=== PATIENT | female | born 1960 | race Caucasian/White ===

== ENCOUNTER → 2016-06-18 | Outpatient (CLI) | payer BC, OTHER | LOC: RAD 16:55 | PROVIDERS: ATTEND Physician Assistant | DX: M54.5 Low back pain (principal); M47.896 Other spondylosis, lumbar region | CPT/HCPCS: 72110 ==

== ENCOUNTER → 2017-09-23 | Outpatient (CLI) | payer BC, OTHER ==
--- NOTE | 2017-09-23 10:15 | RADIOLOGY REPORT (SQ) ---
EXAM DESCRIPTION: MRI CERVICAL SPINE WITHOUT COMPLETED DATE/TIME: 09/23/2017 7:59 am REASON FOR STUDY: OTHER CERVICAL DISC DEGENERATION, UNSPEC CERVICAL REGION (M50.30) M50.30 OTHER CE RVICAL DISC DEGENERATION, UNSP CERVICAL REGIO COMPARISON: 11/16/2015 TECHNIQUE: Sagittal and Axial imaging includes T1, T2, STIR and gradient echo sequences. LIMITATIONS: Patient motion. FINDINGS: ALIGNMENT: Normal. VERTEBRAE: Intact. BONE MARROW: Normal. No marrow replacement or reactive changes. DISCS: Desiccation multiple levels. HARDWARE: None in the spine. CORD AND BASE OF BRAIN: Cord signal is normal. Increased T2 signal in the [place] which is not signific antly changed and probably secondary to chronic ischemic change. SOFT TISSUES: No soft tissue masses. C1-C2: No significant spinal stenosis. C2-C3: No significant spinal stenosis or exit foraminal stenosis. C3-C4: Minimal narrowing of the spinal canal due to disc osteophyte complex. Severe left neural fora azar narrowing. C4-C5: Minimal narrowing of the spinal canal. Mild left and severe right neural foraminal narrowing. C5-C6: Mild spinal stenosis due to disc osteophyte complex. Moderate neural foraminal narrowing bila terally. C6-C7: Similar findings as at C5- 6. C7-T1: No significant spinal stenosis or exit foraminal stenosis. UPPER THORACIC: No acute findings. OTHER: No other significant finding. IMPRESSION: Mild spinal stenosis C5- 6 and C6-7. No significant change. TECHNICAL DOCUMENTATION: JOB ID: [id number] [employer]- All Rights Reserved Reading location - IP/workstation name: [email or web address]
== END ==
LOC: RAD 06:36
PROVIDERS: ATTEND Physician Assistant
DX: M50.30 Other cervical disc degeneration, unspecified cervical region (principal)
CPT/HCPCS: 72141

== ENCOUNTER → 2017-10-01 | Outpatient (CLI) | payer BC, OTHER ==
--- NOTE | 2017-10-01 15:29 | RADIOLOGY REPORT (SQ) ---
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 9 MALIGNANT NEOPLASM OF UNSP KIDNEY, EXCEPT RENAL PELVIS COMPARISON: None. TECHNIQUE: Dynamic and static grayscale images acquired of the kidneys and bladder and recorded on P ACS. Additional selected color Doppler and spectral images recorded. LIMITATIONS: None. FINDINGS: RIGHT KIDNEY: Normal size. Normal echogenicity. No solid or suspicious masses. No h ydronephrosis. No calcifications. LEFT KIDNEY: Normal size. Normal echogenicity. No solid or suspicious masses. Mild dilatation of the renal pelvis 9 mm. No calcifications. BLADDER: No masses. OTHER FINDINGS: No other significant finding. IMPRESSION: Mild dilatation of the left renal pelvis without visualized stones or mass. TECHNICAL DOCUMENTATION: JOB ID: [id number] [employer]- All Rights Reserved Reading location - IP/workstation name: [facility]
== END ==
LOC: RAD 12:51
PROVIDERS: ATTEND Internal Medicine Hematology & Oncology
DX: Q85.8 Other phakomatoses, not elsewhere classified (principal); C64.9 Malignant neoplasm of unspecified kidney, except renal pelvis
CPT/HCPCS: 76770

== ENCOUNTER → 2017-11-12 | Outpatient (CLI) | payer BC, OTHER ==
--- NOTE | 2017-11-13 15:49 | RADIOLOGY REPORT (SQ) ---
EXAM DESCRIPTION: MRI HEAD COMBO COMPLETED DATE/TIME: 11/12/2017 7:47 pm REASON FOR STUDY: PARESTHESIA OF SKIN R20.2 PARESTHESIA OF SKIN COMPARISON: None. TECHNIQUE: Multiplanar imaging includes noncontrasted T1, T2, FLAIR, diffusion with ADC map and post gadolinium contrast T1 sequences. Images stored on PACS. CONTRAST TYPE AND DOSE: Not provided. RENAL FUNCTION: Not provided. LIMITATIONS: None. FINDINGS: ANATOMY: No anomalies. Normal vascular flow voids. Pituitary fossa normal. CSF SPACES: Normal in size and contour. No hemorrhage. CEREBRUM: Multifocal areas of T2/FLAIR hyperintense white matter signal. Moderate-marked. Likely sm all vessel vasculopathy. Most confluent along the deep posterior periventricular regions bilaterally . No enhancing lesions. POSTERIOR FOSSA: No signal alteration. No hemorrhage. No edema, masses, or mass effect. Internal mariia tory canals, cerebellopontine angles, mastoids normal. No enhancing lesions. No abnormal enhancement post contrast. DIFFUSION IMAGING: Negative for acute or subacute infarction. ORBITS: No masses. Globes normal. PARANASAL SINUSES: No fluid levels. Mucosa normal. OTHER: No other significant finding. IMPRESSION: 1. Preserved brain parenchymal volume but fairly extensive white matter lesions bilatera lly. Likely related to small vessel disease, most commonly microvascular ischemic change. However t he appearance is fairly extensive for a patient of this age. Demyelinating disease is therefore also in the differential, as are toxic/ chemotherapeutic changes in a patient with history of breast canc er. No enhancing lesions. No recent CVA. EVIDENCE OF ACUTE STROKE: NO. TECHNICAL DOCUMENTATION: JOB ID: [id number] [employer]- All Rights Reserved Reading location - IP/workstation name: [email or web address]
== END ==
LOC: RAD 16:11
PROVIDERS: ATTEND Specialist
DX: R20.2 Paresthesia of skin (principal)
CPT/HCPCS: 82565; 70553; A9577

== ENCOUNTER 2018-09-01 16:41 | Emergency (ER) | payer BC, OTHER ==
--- NOTE | 2018-09-01 18:54 | RADIOLOGY REPORT (SQ) ---
EXAM DESCRIPTION: FOREARM RIGHT COMPLETED DATE/TIME: 09/01/2018 6:47 pm REASON FOR STUDY: fall, pain to forearm and wrist COMPARISON: None. NUMBER OF VIEWS: Two views. TECHNIQUE: Two radiographic images acquired of the right forearm, including elbow and wrist in at le ast one projection. LIMITATIONS: None. FINDINGS: MINERALIZATION: Normal. BONES: No acute fracture. No worrisome bone lesions. SOFT TISSUES: No obvious swelling or foreign body. OTHER: No other significant finding. IMPRESSION: NEGATIVE STUDY OF THE RIGHT FOREARM. NO RADIOGRAPHIC EVIDENCE OF ACUTE INJURY. TECHNICAL DOCUMENTATION: JOB ID: [id number] [employer]- All Rights Reserved Reading location - IP/workstation name: [email or web address]
[2018-09-01] MEDS ORDERED: IBUPROFEN 600 MG TABLET PO ONE (19:07)
--- NOTE | 2018-09-01 19:10 | ER Document Report ---
HPI - HPI Time Seen by Provider: 09/01/18 18:05 Pain Level: 2 Notes: Patient is a 58-year-old female who presents with right forearm and right wrist pain and swelling. She reports she tripped and fell while going to get the mail. Patient denies any pain at the elbow or shoulder. - REPRODUCTIVE Reproductive: DENIES: : - MUSCULOSKELETAL Musculoskeletal: REPORTS: Extremity pain - R arm Past Medical History - General Information source: Patient - Social History Smoking Status: Never Smoker Family History: Reviewed & Not Pertinent Patient has suicidal ideation: No Patient has homicidal ideation: No - Past Medical History Cardiac Medical History: Reports: Hx Hypercholesterolemia, Hx Hypertension Pulmonary Medical History: Reports: Hx Pneumonia Endocrine Medical History: Reports: Hx Diabetes Mellitus Type 2 Renal/ Medical History: Denies: Hx Peritoneal Dialysis GI Medical History: Reports: Hx Gastroesophageal Reflux Disease Musculoskeletal Medical History: Reports Hx Arthritis Past Surgical History: Reports: Hx Appendectomy, Hx Breast Surgery - RIGHT MASTECTOMY, Hx Hysterectomy, Hx Mastectomy, Hx Tonsillectomy, Hx Vascular Surgery - Immunizations Hx Diphtheria, Pertussis, Tetanus Vaccination: Yes Vertical Provider Document - CONSTITUTIONAL Notes: PHYSICAL EXAMINATION: GENERAL: Well-appearing, well-nourished and in no acute distress. HEAD: Atraumatic, normocephalic. EYES: Pupils equal round extraocular movements intact, conjunctiva are normal. ENT: Nares patent NECK: Normal range of motion LUNGS: No respiratory distress Musculoskeletal: Swelling noted to right arm in the wrist and forearm. No erythema or ecchymosis noted. Strong radial pulse. Cap refill less than 3 seconds, normal motor and sensation distal to injury. NEUROLOGICAL: Normal speech, normal gait. PSYCH: Normal mood, normal affect. SKIN: Warm, Dry, normal turgor, no rashes or lesions noted. - INFECTION CONTROL TRAVEL OUTSIDE OF THE [place] IN LAST 30 DAYS: No Course - Re-evaluation Re-evalutation: X-rays negative for any acute fracture or dislocation. Patient will be discharged home, instructed to apply ice, elevate and take ibuprofen. Patient was offered a sling which she declined. Patient did request a cockup splint which was provided. - Vital Signs Vital signs: Temp Pulse Resp BP Pulse Ox 99.4 F 109 H 18 108/54 L 98 09/01/18 17:05 09/01/18 17:05 09/01/18 17:05 09/01/18 17:05 09/01/18 17:05 Procedures - Immobilization Right wrist Pre-Proc Neuro Vasc Exam: Normal Immobilizer type: Cock-up Performed by: PCT Post-Proc Neuro Vasc Exam: Normal Alignment checked and good: Yes Discharge - Discharge Clinical Impression: Injury of right lower arm Qualifiers: Encounter type: initial encounter Qualified Code(s): S59.911A - Unspecified injury of right forearm, initial encounter Contusion Qualifiers: Encounter type: initial encounter Contusion area: forearm Laterality: right Qualified Code(s): S50.11XA - Contusion of right forearm, initial encounter Condition: Stable Disposition: HOME, SELF-CARE Additional Instructions: Contusion Your injury has resulted in a contusion -- a crushing of the deep tissues. No injury to important structures was detected during the physician's exam. Contusions vary in the amount of pain they cause, and in the length of time required for healing. Typically, the area will become bruised, and will remain painful to touch for two or three weeks. However, most patients are back to working and playing within a few days. After the initial period of rest and cold-packs, your symptoms (together with the doctor's recommendations) will determine how rapidly you can get back to full activity. Usually this means "do what feels okay, but don't do things that hurt." If re-examination was recommended, it's important to follow up as instructed. Call the doctor or return any time if pain increases, if swelling becomes severe, if you develop numbness or weakness in an injured extremity, or if any other alarming symptoms occur. Ice & Elevation Apply ice packs frequently against the painful area. Many different schedules are recommended, such as "20 minutes on, 20 minutes off" or "one hour ice, two hours rest." If you need to work, you may need to go longer between ice treatments. You should plan to have the area ice packed AT LEAST one-fourth of the time. The ice should be applied over the wrap, tape, or splint, or over a layer of cloth -- not directly against the skin. Some ice bags have a built-in cloth and can be put directly on the skin. Your injured part should be elevated as much as possible over the next 48 hours. Try to keep the injury above the level of the heart. Avoid use of the injured area. Elevation and rest will decrease the swelling. Ibuprofen Ibuprofen is an excellent, safe drug for pain control. In addition, it has potent antiinflammatory effects which are beneficial, especially in the treatment of injuries, arthritis, or tendonitis. It's best to take ibuprofen with food. Persons with ulcer disease or allergy to aspirin should notify their physician of this before taking ibuprofen. Take the medication exactly as prescribed. Don't take additional doses unless instructed to do so by your doctor. If you develop wheezing, shortness of breath, hives, faintness, stomach pain, vomiting, or dark black stools, return for re-evaluation at once. The x-rays were negative for any fracture or dislocation. Please take ibuprofen [id number] as directed to help with pain and inflammation. Take the hydrocodone for severe pain only. Referrals: KAYY MOURA MD [Primary Care Provider] - Follow up as needed
[2018-09-01 19:23] VITALS: BP 132/64
== END 2018-09-01 19:22 | disposition home or self-care (01) ==
LOC: ER 16:41
DX: S50.11XA Contusion of right forearm, initial encounter (principal); M79.631 Pain in right forearm; M25.531 Pain in right wrist; M79.89 Other specified soft tissue disorders; W01.0XXA Fall on same level from slipping, tripping and stumbling without subsequent striking against object, initial encounter; I10 Essential (primary) hypertension; E11.9 Type 2 diabetes mellitus without complications
CPT/HCPCS: 99283; 73090; L3908

== ENCOUNTER → 2018-10-14 | Outpatient (CLI) | payer BC, OTHER ==
--- NOTE | 2018-10-14 13:17 | RADIOLOGY REPORT (SQ) ---
EXAM DESCRIPTION: MRI HEAD COMBO COMPLETED DATE/TIME: 10/14/2018 12:39 pm REASON FOR STUDY: WHITE MATTER ABNORMALITY ON MRI OF BRAIN R90.82 WHITE MATTER DISEASE, UNSPECIFIED COMPARISON: MRI brain 11/12/2017 TECHNIQUE: Multiplanar imaging includes noncontrasted T1, T2, FLAIR, diffusion with ADC map and post gadolinium contrast T1 sequences. Images stored on PACS. CONTRAST TYPE AND DOSE: 20 mL Dotarem. RENAL FUNCTION: Not indicated. ACR Type II contrast agent associated with few, if any, unconfounded cases of NSF LIMITATIONS: None. FINDINGS: ANATOMY: No developmental anomalies. Normal vascular flow voids. Pituitary fossa normal. CSF SPACES: Normal in size and contour. No hemorrhage. CEREBRUM: No MRI evidence of acute ischemic change, acute intracranial hemorrhage, mass effect, or mi dline shift. There are no brain parenchymal nodules worrisome for metastatic disease given history of breast cance r. Confluent bifrontal and biparietal hemispheric white matter is present, involving the frontal, pariet al, and temporal lobes similar compared to 11/12/2017. This could represent demyelinating disease from multiple sclerosis or Lyme disease. Chemotherapy related white matter disease is possible but consi dered less likely. POSTERIOR FOSSA: Punctate focus of increased FLAIR signal in the right middle cerebellar peduncle wit h spotty white matter lesions in the mid [place], similar compared to 2018. Findings are strongly sugge stive of demyelinating disease. No acute findings. No mass effect or shift. DIFFUSION IMAGING: Negative for acute or subacute infarction. ORBITS: No masses. Globes normal. PARANASAL SINUSES: No fluid levels. Mucosa normal. OTHER: No other significant finding. IMPRESSION: Increased signal in the Hemispheric white matter with involvement of the [place] and right middle cerebellar peduncle worrisome for multiple sclerosis. This is similar compared to 11/12/2017. EVIDENCE OF ACUTE STROKE: NO. TECHNICAL DOCUMENTATION: JOB ID: [id number] [employer]- All Rights Reserved Reading location - IP/workstation name: [email or web address]
== END ==
LOC: RAD 11:32
PROVIDERS: ATTEND Psychiatry & Neurology Neurology
DX: R90.82 White matter disease, unspecified (principal); Z15.89 Genetic susceptibility to other disease; Q85.8 Other phakomatoses, not elsewhere classified
CPT/HCPCS: 70553; A9576

== ENCOUNTER → 2019-01-11 | Outpatient (CLI) | payer BC, OTHER ==
--- NOTE | 2019-01-11 10:55 | RADIOLOGY REPORT (SQ) ---
EXAM DESCRIPTION: MRI CERVICAL SPINE WITHOUT COMPLETED DATE/TIME: 01/11/2019 10:19 am REASON FOR STUDY: M54.12 RADICULOPATHY, CERVICAL REGION M54.12 RADICULOPATHY, CERVICAL REGION COMPARISON: 09/23/2017 TECHNIQUE: Sagittal and Axial imaging includes T1, T2, STIR and gradient echo sequences. LIMITATIONS: None. FINDINGS: ALIGNMENT: Normal. VERTEBRAE: Intact. BONE MARROW: Normal. No marrow replacement or reactive changes. DISCS: Mild loss of height at C4-5 and C5-6. There is mild decreased signal intensity from all the c ervical discs. HARDWARE: None in the spine. CORD AND BASE OF BRAIN: Normal in size and signal intensity. SOFT TISSUES: No soft tissue masses. C1-C2: No significant spinal stenosis. C2-C3: No significant spinal stenosis or exit foraminal stenosis. C3-C4: Very shallow broad-based disc/ osteophyte complex. There is moderate left foraminal stenosis secondary to facet hypertrophy and uncovertebral osteophyte. C4-C5: There is facet hypertrophy and uncovertebral osteophyte on the right that results in moderate right foraminal stenosis. C5-C6: Broad-based, somewhat asymmetrical disc/osteophyte complex with a shallow left paracentral dis c protrusion that minimally deforms the spinal cord. Mild foraminal stenosis bilaterally secondary t o uncovertebral osteophyte. Right slightly greater than left. C6-C7: Broad-based disc/osteophyte complex that narrows the anterior CSF space but does not impinge u lynn the spinal cord. Mild foraminal stenoses secondary to uncovertebral osteophytes. C7-T1: No significant spinal stenosis or exit foraminal stenosis. UPPER THORACIC: Incompletely imaged. No significant spinal stenosis or exit foraminal stenosis. OTHER: No other significant finding. IMPRESSION: Multilevel disc/ osteophyte complexes with foraminal stenoses at multiple levels seconda ry to uncovertebral osteophytes. Most significant finding is at C5-6 where there is disc/osteophyte complex with left paracentral disc protrusion at minimally deforms the spinal cord. This has progres sed since the study from 09/23/2017. TECHNICAL DOCUMENTATION: JOB ID: [id number] [employer]- All Rights Reserved Reading location - IP/workstation name: [email or web address]
== END ==
LOC: RAD 09:30
PROVIDERS: ATTEND Specialist
DX: M54.12 Radiculopathy, cervical region (principal)
CPT/HCPCS: 72141

== ENCOUNTER → 2019-03-23 | Outpatient (CLI) | payer BC, OTHER ==
--- NOTE | 2019-03-23 12:56 | RADIOLOGY REPORT (SQ) ---
EXAM DESCRIPTION: CERV SP 3 VIEW OR LESS COMPLETED DATE/TIME: 03/23/2019 10:50 am REASON FOR STUDY: FLEX/EXT ONLY CERVICAL RADICULOPATHY (M54.12) COMPARISON: MRI from January. FINDINGS: Two views of the cervical spine, upright lateral flexion-extension. Very limited excursion. No malalignment or abnormal motion. Anterior instrumentation spanning C4 through C7, intact. TECHNICAL DOCUMENTATION: JOB ID: [id number] Reading location - IP/workstation name: [email or web address]
== END ==
LOC: RAD 10:30
PROVIDERS: ATTEND Specialist
DX: M54.12 Radiculopathy, cervical region (principal)
CPT/HCPCS: 72040

== ENCOUNTER → 2019-05-08 | Outpatient (CLI) | payer BC, OTHER ==
--- NOTE | 2019-05-08 14:07 | RADIOLOGY REPORT (SQ) ---
EXAM DESCRIPTION: CERV SP 3 VIEW OR LESS COMPLETED DATE/TIME: 05/08/2019 1:52 pm REASON FOR STUDY: (M54.12)RADICULOPATHY, CERVICAL REGION M54.12 RADICULOPATHY, CERVICAL REGION COMPARISON: 03/23/2019 NUMBER OF VIEWS: Three views. TECHNIQUE: Lateral flexion and extension radiographic images acquired of the cervical spine. LIMITATIONS: None. FINDINGS: MINERALIZATION: Normal. ALIGNMENT: Straightening of the normal cervical lordosis. VERTEBRAE: Vertebral bodies of normal height. Mild multilevel facet arthropathy. DISCS: Interbody fusion hardware at C4-C7. Remaining disc spaces are unremarkable. HARDWARE: Anterior fusion hardware from C4-C7. No evidence of hardware complication. No evidence of instability with flexion or extension. Surgical clips overlie anterior soft tissues. SOFT TISSUES: No masses or calcifications. Lung apices clear. OTHER: No other significant finding. IMPRESSION: No evidence of acute bony abnormality. Anterior fusion hardware from C4-C7. No evidence hardware complication or instability with flexion o r extension. TECHNICAL DOCUMENTATION: JOB ID: [id number] [employer]- All Rights Reserved Reading location - IP/workstation name: [email or web address]
== END ==
LOC: RAD 13:29
PROVIDERS: ATTEND Specialist
DX: M54.12 Radiculopathy, cervical region (principal)
CPT/HCPCS: 72040

== ENCOUNTER → 2019-09-11 | Outpatient (CLI) | payer BC, OTHER ==
--- NOTE | 2019-09-11 10:12 | RADIOLOGY REPORT (SQ) ---
EXAM DESCRIPTION: CHEST 2 VIEWS IMAGES COMPLETED DATE/TIME: 09/11/2019 10:03 am REASON FOR STUDY: R91.1 SOLITARY PULMONARY NODULE COMPARISON: 12/04/2006 EXAM PARAMETERS: NUMBER OF VIEWS: two views TECHNIQUE: Digital Frontal and Lateral radiographic views of the chest acquired. RADIATION DOSE: NA LIMITATIONS: none FINDINGS: LUNGS AND PLEURA: No opacities, masses or pneumothorax. No pleural effusion. MEDIASTINUM AND HILAR STRUCTURES: No masses or contour abnormalities. HEART AND VASCULAR STRUCTURES: Heart normal size. No evidence for failure. BONES: No acute findings. HARDWARE: None in the chest. OTHER: No other significant finding. IMPRESSION: NO ACUTE RADIOGRAPHIC FINDING IN THE CHEST. TECHNICAL DOCUMENTATION: JOB ID: [id number] 2010 [employer]- All Rights Reserved Reading location - IP/workstation name: [email or web address]
--- NOTE | 2019-09-11 10:51 | RADIOLOGY REPORT (SQ) ---
EXAM DESCRIPTION: U/S RETROPERITON (RENAL/AORTA) IMAGES COMPLETED DATE/TIME: 09/11/2019 10:05 am REASON FOR STUDY: Q85.8 OTHER PHAKOMATOSES, NOT ELSEWHERE CLASSIFIED Z78.0 ASYMPTOMATIC MENOPAUSAL STATE Q85.8 OTHER PHAKOMATOSES, NOT ELSEWHERE CLASSIFIED R91.1 SOLITARY PULMONARY NODULE COMPARISON: 10/01/2017 TECHNIQUE: Dynamic and static grayscale images acquired of the kidneys and bladder and recorded on P ACS. Additional selected color Doppler and spectral images recorded. LIMITATIONS: None. FINDINGS: RIGHT KIDNEY: The right kidney measures 13.1 cm in length. Normal echogenicity. No so lid or suspicious masses. No hydronephrosis. No calcifications. LEFT KIDNEY: The left kidney measures 11.4 cm in length. Normal echogenicity. No solid or suspic ious masses. Mild prominence of the left renal pelvis stable from prior study. This most likely re presents prominent extrarenal pelvis. No calcifications. There is a small approximately 1 cm corti fco cyst. BLADDER: No masses. OTHER FINDINGS: No other significant finding. IMPRESSION: Suspect prominent extrarenal pelvis on the left. Similar findings were noted in 2018. No other significant findings. TECHNICAL DOCUMENTATION: JOB ID: [id number] 2010 [employer]- All Rights Reserved Reading location - IP/workstation name: [email or web address]
== END ==
LOC: WI 09:34
PROVIDERS: ATTEND Student in an Organized Health Care Education/Training Program
DX: R91.1 Solitary pulmonary nodule (principal); Q85.8 Other phakomatoses, not elsewhere classified
CPT/HCPCS: 71046; 76770

== ENCOUNTER → 2019-12-18 | Outpatient (CLI) | payer BC, OTHER ==
--- NOTE | 2019-12-19 09:01 | RADIOLOGY REPORT (SQ) ---
EXAM DESCRIPTION: MRI HEAD COMBO IMAGES COMPLETED DATE/TIME: 12/18/2019 4:39 pm REASON FOR STUDY: (R90.82)WHITE MATTER DISEASE, UNSPECIFIED R90.82 WHITE MATTER DISEASE, UNSPECIFIE D COMPARISON: 10/14/2018 TECHNIQUE: Multiplanar imaging includes noncontrasted T1, T2, FLAIR, diffusion with ADC map and post gadolinium contrast T1 sequences. Images stored on PACS. CONTRAST TYPE AND DOSE: 20 mL Prohance. RENAL FUNCTION: Not indicated. ACR Type II contrast agent associated with few, if any, unconfounded cases of NSF LIMITATIONS: None. FINDINGS: ANATOMY: No anomalies. Normal vascular flow voids. Pituitary fossa normal. CSF SPACES: Normal in size and contour. No hemorrhage. CEREBRUM: Periventricular mostly confluent areas of increased signal FLAIR sequence not significantly changed. Pattern is consistent with clinical history. No enhancement. POSTERIOR FOSSA: Punctate focus of increased signal right cerebellar pedicle. DIFFUSION IMAGING: Negative for acute or subacute infarction. ORBITS: No masses. Globes normal. PARANASAL SINUSES: No fluid levels. Mucosa normal. OTHER: No other significant finding. IMPRESSION: Stable inactive demyelinating disease. No evidence of active demyelination. EVIDENCE OF ACUTE STROKE: NO. TECHNICAL DOCUMENTATION: JOB ID: [id number] 2010 [employer]- All Rights Reserved Reading location - IP/workstation name: [email or web address]
== END ==
LOC: RAD 15:17
PROVIDERS: ATTEND Psychiatry & Neurology Neurology
DX: R90.82 White matter disease, unspecified (principal); Q85.8 Other phakomatoses, not elsewhere classified; Z15.89 Genetic susceptibility to other disease
CPT/HCPCS: 82565; 70553; A9576